=== PATIENT | male | born 1975 | race Caucasian/White ===

== ENCOUNTER 2017-07-27 13:47 | Observation (INO) ==
[2017-07-27] MEDS ORDERED: ONDANSETRON 4 MG/2 ML VIAL IV STA (14:22)
[2017-07-27] MEDS ORDERED: GLUCAGON 1 MG VIAL IV STA (14:23)
[2017-07-27] MEDS ORDERED: ONDANSETRON 4 MG/2 ML VIAL ONE ×2 (14:28→19:19)
[2017-07-27] MEDS ORDERED: GLUCAGON 1 MG VIAL ONE (14:28)
[2017-07-27] MEDS ORDERED: SODIUM CHLORIDE 0.9% 1,000 ML IV SCH (17:30)
[2017-07-27] MEDS ORDERED: PROPOFOL 200 MG/20 ML VIAL IV ONE (19:18)
[2017-07-27] MEDS ORDERED: SUCCINYLCHOLINE 200 MG/10 ML VIAL ONE (19:19)
[2017-07-27] MEDS ORDERED: fentaNYL 100 MCG/2 ML VIAL ONE ×2 (19:19→21:22)
[2017-07-27] MEDS ORDERED: MIDAZOLAM 2 MG/2 ML VIAL ONE (19:19)
[2017-07-27] MEDS ORDERED: RACEPINEPHRINE 0.5 ML NEB RESP TX ONE (21:07)
[2017-07-27] MEDS ORDERED: ONDANSETRON 4 MG/2 ML VIAL IV PRN (21:13)
[2017-07-27] MEDS ORDERED: MAGNESIUM HYDROXIDE SUSP 30 ML UDCUP PO PRN (21:13)
[2017-07-27] MEDS ORDERED: SUCRALFATE 1 GM/10 ML UDCUP PO PRN (21:18)
[2017-07-27] MEDS ORDERED: NAPROXEN 250 MG TABLET PO PRN (21:20)
[2017-07-27] MEDS ORDERED: SEVOFLURANE 1 UNIT/15 MINUTE INH ONE (21:22)
[2017-07-27] MEDS ORDERED: LACTATED RINGERS 1,000 ML IV ONE (21:22)
[2017-07-27] MEDS ORDERED: DEXTROSE 5% NACL 0.45% 1,000 ML IV SCH (21:30)
[2017-07-27 22:39] LABS: Basophils # 0.1 10*3/uL (0.0-0.2); Basophils % 0.5 % (0.0-0.8); Eosinophils % 0.3 % (0.00-10.9); Hematocrit 40.5 VOL% (42.0-52.0); Hemoglobin 14.4 GM/DL (14.0-18.0); Immature Granulocytes % 0.8 %; Lymphocytes # 1.7 10*3/uL (1.4-4.0); Lymphocytes % 12.8 % (21.2-54.2); Mean Corpuscular HGB Conc 35.6 GM/DL (32-36); Mean Corpuscular Hemoglobin 29 PG (27-34); Mean Corpuscular Volume 81.2 FL (87-102); Mean Platelet Volume 9.9 FL (9.6-12.0); Monocytes # 0.5 10*3/uL (0.11-0.8); Monocytes % 3.7 % (1.7-12.7); Neutrophils # 10.6 10*3/uL (1.4-7.4); Neutrophils % 81.9 % (38.7-73.9); Platelet Count 277 T/CUMM (130-400); Red Blood Count 4.99 MC/CUMM (3.8-5.5); Red Cell Distribution Width 13.1 % (9.3-17.3); White Blood Count 12.9 T/CUMM (4-12)
[2017-07-27] MEDS: PANTOPRAZOLE 40 MG VIAL IV SCH (22:58)
[2017-07-27 23:08] LABS: Albumin 3.9 G/DL (3.4-5.0); Bilirubin,Total 0.4 MG/DL (0.2-1.0); Calcium 8.6 MG/DL (8.5-10.1); Osmolality,Calculated 287.1 MOS/KG (273-304); Potassium 4.2 MMOL/L (3.5-5.1); Total Protein 6.5 G/DL (6.4-8.3)
[2017-07-27] MEDS ORDERED: INFLUENZA VIRUS VACCINE 0.5 ML SYRINGE IM ONE (23:13)
[2017-07-28 07:32] VITALS: BP 138/73
[2017-07-28] MEDS: PANTOPRAZOLE 40 MG VIAL IV SCH (08:30)
== END 2017-07-28 13:06 | disposition home or self-care (01) ==
LOC: N.ED 13:47 → N.5E 13:47
PROVIDERS: ADMIT Internal Medicine Gastroenterology; ATTEND Internal Medicine Gastroenterology